=== PATIENT | male | born 1985 | race Caucasian/White ===

== ENCOUNTER 2018-03-03 06:58 | Day surgery (SDC) | END 2018-03-03 12:05 | disposition home or self-care (01) ==

== ENCOUNTER 2018-12-15 10:31 | Day surgery (SDC) | payer BC ==
[2018-12-14 14:23] VITALS: BMI 27.6
[~2018-12-15] VITALS: Ht 190.5 cm; Wt 101.3 kg
[2018-12-15] VITALS (16 sets, daily range): BP systolic 97–116; BP diastolic 55–77; PULSE 54–82; RESP 12–21; Ht 190.5 cm; Wt 101.3 kg
[~2018-12-15 10:31] MED LIST: LEVO112T42 PO; LEVO75TA65 PO
--- NOTE | 2018-12-15 12:58 | PREAC ---
Date/Time of Note Date/Time of Note DATE: 12/15/18 TIME: 12:57 Anesthesia Eval and Record Evaluation Time Pre-Procedure Interview DATE: 12/15/18 TIME: 12:57 Age 33 Sex male NPO: 8 hrs Preoperative diagnosis Anal fistula Planned procedure Anal examination under Anesthesia Past Medical History Past Medical History: Includes Endo: Hypothyroid GI: Morbid obesity Surgery & Anesthesia Issues No known issue Meds Anticoagulation: No Beta Richie within 24 hr: No Reason Beta Richie not given: Pt. not on B-Richie Reported Medications Levothyroxine Sodium* (Levoxyl*) 112 Mcg Tablet, 112.5 MCG PO SAT AND SUN, #30 TAB 03/03/18 Levothyroxine Sodium* (Levoxyl*) 75 Mcg Tablet, 75 MCG PO MON THRU TUE, #30 TAB 03/03/18 Meds reviewed: Yes Allergies Coded Allergies: No Known Allergy (Unverified , 12/15/18) Allergies Reviewed: Yes Labs/Studies Labs Reviewed: Reviewed by anesthesiologist test: N/A Studies: ECG Pre-procedure Exam Last vitals Vital Signs Date Temp Pulse Resp B/P (MAP) Pulse Ox O2 O2 Flow FiO2 Time Delivery Rate 12/15/18 98.0 67 16 115/69 97 Room Air 11:06 (84) Airway: Adequate mouth opening, Adequate thyromental dist Mallampati: Mallampati II Teeth: Normal Lung: Normal Heart: Normal ASA Physical Status ASA physical status: 2 Emergency: None Planned Anesthetic General/MAC: ETT Planned Pain Management Parenteral pain med Pre-operative Attestations Prior to commencing anesthesia and surgery, the patient was re-evaluated, there was verification of: *The patient's identity *The results of appropriate recent lab work and preoperative vital signs *The above evaluation not changing prior to induction *Anesthetic plan, risk benefits, alternative and complications discussed with patient/family; questions answered; patient/family understands, accepts and wishes to proceed. HILARIO SIMONS MD Dec 15, 2018 12:58
[2018-12-15] MEDS ORDERED: MIDAZOLAM 1 MG/ML 2 ML INJ ONE (13:11)
[2018-12-15] MEDS ORDERED: FENTAnyl 50 MCG/ML VIAL ONE (13:11)
[2018-12-15] MEDS ORDERED: BUPIVACAINE 0.5%/EPI (SDV) 30 ML INJ ONE (13:15)
[2018-12-15] MEDS ORDERED: HYDROGEN PEROXIDE 118 ML ONE (13:15)
[2018-12-15] MEDS ORDERED: CEFAZOLIN 1 GM INJ ONE (14:06)
[2018-12-15] MEDS ORDERED: ROCURONIUM 50 MG INJ ONE (14:06)
[2018-12-15] MEDS ORDERED: LIDOCAINE 2% (SDV) 5 ML INJ ONE (14:06)
[2018-12-15] MEDS ORDERED: PROPOFOL 40 ML ONE (14:06)
[2018-12-15] MEDS ORDERED: GLYCOPYRROLATE 0.4 MG INJ ONE (14:07)
[2018-12-15] MEDS ORDERED: NEOSTIGMINE 3 MG/3 ML SYRINGE ONE (14:07)
[2018-12-15] MEDS ORDERED: ONDANSETRON 4 MG INJ ONE (14:07)
--- NOTE | 2018-12-15 14:11 | SIPON ---
Date/Time of Note Date/Time of Note DATE: 12/15/18 TIME: 14:10 Operative Report Preoperative Diagnosis Anal pain probable fissure rule out fistula Postoperative Diagnosis Same Operation/Procedure Performed Anal exam under anesthesia rigid sigmoidoscopy and left lateral internal sphincterotomy Surgeon see signature line assistant store manager Dr Lou Anesthesia: general Estimated blood loss: 10 - 50 ml's Transfusion Required none Specimen None Grafts/Implants none Complications none FELIPE MCPHERSON MD Dec 15, 2018 14:11
[2018-12-15] MEDS ORDERED: FENTAnyl 50 MCG/ML VIAL IV PRN (14:30)
[2018-12-15] MEDS ORDERED: DIPHENHYDRAMINE 50 MG INJ IV PRN (14:30)
[2018-12-15] MEDS ORDERED: ONDANSETRON 4 MG INJ IV PRN (14:30)
[2018-12-15] MEDS ORDERED: HYDROmorphONE 1 MG/5 ML IV SYRINGE IV PRN ×2 (14:30)
[2018-12-15] MEDS ORDERED: MEPERIDINE 25 MG INJ IV PRN (14:30)
[2018-12-15] MEDS ORDERED: METOCLOPRAMIDE 10 MG INJ IV PRN (14:30)
--- NOTE | 2018-12-15 14:30 | PAC ---
Date/Time of Note Date/Time of Note DATE: 12/15/18 TIME: 14:29 Post-Anesthesia Notes Post-Anesthesia Note Last documented vital signs Vital Signs Date Temp Pulse Resp B/P (MAP) Pulse Ox O2 O2 Flow FiO2 Time Delivery Rate 12/15/18 98.0 67 16 115/69 97 Room Air 11:06 (84) Activity: WNL Respiratory function: WNL Cardiovascular function: WNL Mental status: Baseline Pain reasonably controlled: Yes Hydration appropriate: Yes Nausea/Vomiting absent: Yes Comments BP:112/67, P:78, Spo2:100%, T:98,8 HILARIO SIMONS MD Dec 15, 2018 14:30
--- NOTE | 2018-12-15 15:48 | OPR ---
DATE OF OPERATION: 12/15/2018 PREOPERATIVE DIAGNOSES: Perianal pain, probable fistula or rule out fistula. POSTOPERATIVE DIAGNOSIS: Anal fissure. OPERATION PERFORMED: Anal exam under anesthesia, rigid sigmoidoscopy and left lateral internal sphin cterotomy. ANESTHESIA: General. ANESTHESIOLOGIST: Winston Harry MD SURGEON: Kenan Bray MD GEOSPATIAL SCIENTIST: Dr. Lou. INDICATIONS FOR PROCEDURE: Patient is a 33-year-old male who presented with severe pain with bowel m ovements. The patient stated that it felt like he was being cut. He was examined in the office, but the exam is limited due to patient discomfort. Presumptive diagnosis was anal fissure, rule out fis bayron. He consented for surgery and was scheduled. DESCRIPTION OF PROCEDURE: The patient was brought to the operating theater, placed under general ane sthesia. He was then placed in the prone jackknife position and the buttocks were widely shaved, tap ed, prepped and draped in usual sterile fashion. Initial digital exam of the anal canal did not reve al evidence of a mass; however, there was evidence of a significant fissure at the 12 o'clock locatio n. The rigid sigmoidoscope was then placed in the anal canal was examined. There was no evidence of additional pathology. At this point, the rigid sigmoidoscope was removed and using 15 blade scalpel , the scalpel was placed in the intersphincteric groove and rotated 90 degrees and an internal sphinc terotomy was performed. The area was then inspected. Minimal bleeding was controlled with pressure. The area was then infiltrated with 0.5% Marcaine local anesthetic with epinephrine. Final irrigati on and inspection took place. There was no further bleeding. This concluded the procedure and the p atient was transported in stable condition to the recovery room. Dictated By: KENAN LEDEZMA/SOTO Conf#: [id number] DID#: [id number]
== END 2018-12-15 19:00 | disposition home or self-care (01) ==
LOC: SDS 10:31
PROVIDERS: ATTEND Surgery Surgical Oncology
DX: K60.2 Anal fissure, unspecified (principal); E03.9 Hypothyroidism, unspecified
CPT/HCPCS: 45330; J0690; J2250; J2405; J2710; J3010; Z7512; Z7610